=== PATIENT | female | born 1960 | race Two or more races ===

== ENCOUNTER 2019-12-09 18:29 | Emergency (ER) | payer SELFPAY ==
[~2019-12-09] VITALS: Ht 162.6 cm; Wt 54.6 kg
[2019-12-09 18:42] VITALS: BP 111/69
[2019-12-09] MEDS ORDERED: ASPIRIN 81 MG TABLET CHEW ONE (19:20)
[2019-12-09] MEDS ORDERED: ASPIRIN 81 MG TABLET CHEW PO ONE (19:30)
[2019-12-09 19:46] LABS: BASOPHILS # (AUTO) 0.03 x10^3/uL (0-0.1); BASOPHILS % (AUTO) 0 % (0-1); EOSINOPHILS # (AUTO) 0.12 x10^3/uL (0-0.4); EOSINOPHILS % (AUTO) 2 % (1-7); LYMPHOCYTES # (AUTO) 1.76 x10^3/uL (1-3.4); LYMPHOCYTES % (AUTO) 24 % (22-44); MD NO; MEAN CORPUSCULAR HEMOGLOBIN 32.5 pg (27.0-34.8); MEAN CORPUSCULAR HGB CONC 33.6 g/dL (32.4-35.8); MEAN CORPUSCULAR VOLUME 96.8 fL (80-100); MEAN PLATELET VOLUME 10.5 fL (7.4-10.4); MONOCYTES # (AUTO) 0.57 x10^3/uL (0.2-0.8); MONOCYTES % (AUTO) 8 % (2-9); NEUTROPHILS # (AUTO) 4.93 x10^3/uL (1.8-6.8); NEUTROPHILS % (AUTO) 67 % (42-75); PLATELET COUNT 163 x10^3/uL (130-400); RED BLOOD COUNT 4.62 x10^6/uL (3.82-5.3); RED CELL DISTRIBUTION WIDTH 13.3 % (9.6-15.2)
[2019-12-09 19:57] LABS: ALANINE AMINOTRANSFERASE 25 U/L (12-78); ANION GAP 5 mmol/L (5-15); CALCIUM 9.2 mg/dL (8.5-10.1); CHLORIDE 104 mmol/L (98-107); CREATININE 0.87 mg/dL (0.55-1.02)
[2019-12-09 20:02] LABS: ALKALINE PHOSPHATASE 37 U/L (45-117); BILIRUBIN,TOTAL 0.6 mg/dL (0.2-1.0); TOTAL PROTEIN 7.1 g/dL (6.4-8.2); TROPONIN I < 0.015 ng/mL (0.000-0.045)
== END 2019-12-09 21:09 | disposition home or self-care (01) ==
LOC: ED 19:44
DX: M94.0 Chondrocostal junction syndrome [Tietze] (principal); F41.1 Generalized anxiety disorder; M54.5 Low back pain; R07.89 Other chest pain; R05 Cough; R53.83 Other fatigue
CPT/HCPCS: 36415; 71045; 80053; 84443; 84484; 85025; 93005; 99285